=== PATIENT | male | born 1975 | race Caucasian/White ===

== ENCOUNTER 2017-12-13 16:04 | Emergency (ER) | payer SELFPAY ==
[2017-12-13] MEDS ORDERED: Lidocaine 2% Viscous Solution 15 ML Cup PO ONE (16:40)
[2017-12-13] MEDS ORDERED: Benzocaine 20% Topical Spray UD MUCMEM ONE (16:40)
--- NOTE | 2017-12-13 16:40 | EDM.PDOC ---
ED HPI GENERAL MEDICAL PROBLEM - General Chief Complaint: ENT Problem Stated Complaint: BROKEN TOOTH Time Seen by Provider: 12/13/17 16:29 Source of Information: Reports: Patient History Limitations: Reports: No Limitations - History of Present Illness INITIAL COMMENTS - FREE TEXT/NARRATIVE: HISTORY AND PHYSICAL: History of present illness: Patient is a 42-year-old male who presents to the emergency room with right lower jaw pain. He states that he has had "problems" with his posterior molars and has yet to have them looked at. Over the past several days he has had increased pain, swelling and drainage from area. He denies any fever, chills, ear pain or sore throat. He denies any chest pain, shortness of breath, abdominal pain, nausea, vomiting or diarrhea/constipation. His been able to eat and drink appropriately. He contacted local dentist but is not able to get dental extraction for one month from now. Review of systems: As per history of present illness and below otherwise all systems reviewed and negative. Past medical history: As per history of present illness and as reviewed below otherwise noncontributory. Surgical history: As per history of present illness and as reviewed below otherwise noncontributory. Social history: No reported history of drug or alcohol abuse. Family history: As per history of present illness and as reviewed below otherwise noncontributory. Physical exam: General: Developed and well nourished 42-year-old male. Alert and oriented. Nontoxic appearing and in no acute distress. HEENT: Atraumatic, normocephalic, pupils equal and reactive bilaterally, negative for conjunctival pallor or scleral icterus, mucous membranes moist, throat clear, dental decay with erosion noted to posterior molars #30-31. Gumline mildy erythematous with tenderness with palpation. His neck supple, nontender, trachea midline. No drooling or trismus noted. No meningeal signs Lungs: Clear to auscultation, breath sounds equal bilaterally, chest nontender. Heart: S1S2, regular rate and rhythm without overt murmur Abdomen: Soft, nondistended, nontender. Negative for masses or hepatosplenomegaly. Negative for costovertebral tenderness. Pelvis: Stable nontender. Genitourinary: Deferred. Rectal: Deferred. Skin: Intact, warm, dry. No lesions or rashes noted. Extremities: Atraumatic, negative for cords or calf pain. Neurovascular unremarkable. Neuro: Awake, alert, oriented. Cranial nerves II through XII unremarkable. Cerebellum unremarkable. Motor and sensory unremarkable throughout. Exam nonfocal. Notes: We'll give the patient dental balls, clindamycin and tramadol. Dictation education was discussed. He is aware that definitive care should be done through the dentist as he will likely need those teeth extraction. He is agreeable and voices understanding. He denies any further questions at this time. Diagnostics: [] Therapeutics: Dental balls Impression: Dental abscess Dental decay Plan: 1. Please take the antibiotic as directed 2. Tylenol and/or ibuprofen as needed for pain management. Tramadol as needed for the evening and nighttime use. This medication does cause drowsiness so do not take while driving or functioning outside of the house. Use the "dental balls" for topical pain relief as needed. Do not swallow. 3. Do continue to follow-up with your dentist for definitive care. Return to the ED as needed and as discussed. Definitive disposition and diagnosis as appropriate pending reevaluation and review of above. Duration: Day(s): Location: Reports: Head Right Lower Tooth/Teeth Pain Score (Numeric/FACES): 8 - Related Data Allergies Allergy/AdvReac Type Severity Reaction Status Date / Time No Known Allergies Allergy Verified 12/13/17 16:26 Home Meds: Home Meds . [No Known Home Meds] 12/13/17 [History] Past Medical History - Past Health History Medical/Surgical History: Denies Medical/Surgical History - Infectious Disease History Infectious Disease History: Reports: Chicken Pox Social & Family History - Family History Family Medical History: Noncontributory - Tobacco Use Smoking Status *Q: Never Smoker - Recreational Drug Use Recreational Drug Use: No ED ROS ENT - Review of Systems Review Of Systems: ROS reveals no pertinent complaints other than HPI. ED EXAM, ENT - Physical Exam Exam: See Below (See dictation) Course - Vital Signs Last Recorded V/S: Last Vital Signs Temp 97.7 F 12/13/17 16:24 Pulse 99 12/13/17 16:24 Resp 18 12/13/17 16:24 BP 151/98 H 12/13/17 16:24 Pulse Ox 93 L 12/13/17 16:24 - Orders/Labs/Meds Meds: Medications Discontinued Medications Generic Name Dose Route Start Last Admin Trade Name Freq PRN Reason Stop Dose Admin Benzocaine 2 each 12/13/17 16:40 Hurricaine One 20% MUCMEM 12/13/17 16:41 ONETIME ONE Lidocaine HCl 15 ml 12/13/17 16:40 Xylocaine 2% Viscous PO 12/13/17 16:41 ONETIME ONE Departure - Departure Time of Disposition: 16:39 Disposition: Home, Self-Care 01 Condition: Good Clinical Impression: Dental abscess, Dental decay - Discharge Information Instructions: Dental Abscess, [id number] Referrals: PCP,None [Primary Care Provider] - Forms: ED Department Discharge Additional Instructions: The following information is given to patients seen in the emergency department who are being discharged to home. This information is to outline your options for follow-up care. We provide all patients seen in our emergency department with a follow-up referral. The need for follow-up, as well as the timing and circumstances, are variable depending upon the specifics of your emergency department visit. If you don't have a primary care physician on staff, we will provide you with a referral. We always advise you to contact your personal physician following an emergency department visit to inform them of the circumstance of the visit and for follow-up with them and/or the need for any referrals to a consulting specialist. The emergency department will also refer you to a specialist when appropriate. This referral assures that you have the opportunity for follow-up care with a specialist. All of these measure are taken in an effort to provide you with optimal care, which includes your follow-up. Under all circumstances we always encourage you to contact your private physician who remains a resource for coordinating your care. When calling for follow-up care, please make the office aware that this follow-up is from your recent emergency room visit. If for any reason you are refused follow-up, please contact the [facility] Emergency Department at and asked to speak to the emergency department charge nurse. [facility] [address] [place] [id number] 1. Please take the antibiotic as directed 2. Tylenol and/or ibuprofen as needed for pain management. Tramadol as needed for the evening and nighttime use. This medication does cause drowsiness so do not take while driving or functioning outside of the house. Use the "dental balls" for topical pain relief as needed. Do not swallow. 3. Do continue to follow-up with your dentist for definitive care. Return to the ED as needed and as discussed.
== END 2017-12-13 16:48 | disposition home or self-care (01) ==
LOC: MW.ED 16:04
DX: K04.7 Periapical abscess without sinus (principal); K02.9 Dental caries, unspecified
CPT/HCPCS: 99282